=== PATIENT | male | born 2000 | race Caucasian/White ===

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

== ENCOUNTER → 2022-06-25 09:55 | Outpatient (CLI) | payer MEDICAID, SELFPAY ==
--- NOTE | 2022-06-25 | CA_ITS ---
APPROVED REPORT EXAM: Comprehensive 2D, Doppler, and color-flow Echocardiogram Creel Selector: Kizzy Asencio RT(R) Ht: 6 ft 1 in Wt: 160lbs BSA: 1.96 BP: 140/90 mmHg Indications: bradycardia, HTN, family history of HD. 2D Dimensions LVOT 1.88 cm (M/F) 1.5-2.5 LA Volume 35.10 mL LA Volume Index 18.00 mL/m2 (M/F) 16-34 M-Mode Dimensions RVDd 2.15 cm (0.9-2.6) LA Diam 2.68 cm (1.9-4.0) LVDd 4.68 cm (3.5-5.7) Ao Diam 2.65 cm (2.0-3.7) LVDs 3.49 cm (3.5-5.7) IVSd 0.76 cm (0.6-1.1) PWd 0.76 cm (0.6-1.1) EF (Teich) 50.10% FS 25.40% EDV (Teich) 101.30 mL ESV (Teich) 50.50 mL LV Diastology E Decel Time 173.00 (160-240 msec) E/A Ratio 2.0 MED E' 15.40 (< 7 cm/sec) E'/MED E' Ratio 5.80 (>14) LAT E' 18.50 (<10 cm/sec) E/LAT E' Ratio 4.83 (>14) Mitral Valve MV E Max Emmanuel. 89.00 (40-130 cm/s) MV A Velocity 44.00 (40-130 cm/s) E/A Ratio 2.03 MV Decel. Time 173.00 (160-240 ms) MV PHT 51.00 ms Tricuspid Valve TR P. Velocity 251.00 cm/s RAP Estimate 10.00 mmHg RVSP 35.20 mmHg Left Ventricle Left atrium is normal size, left ventricle is normal size, there is no concentric left ventricular hypertrophy, estimated ejection fraction is 55% with no regional wall motion abnormality. Right Ventricle Right atrium and right ventricle are normal size and contractility. Aortic Valve Aortic valve is grossly normal there is no aortic stenosis aortic insufficiency. Mitral Valve Mitral valve grossly normal, there is trace mitral regurgitation. Tricuspid Valve Tricuspid valve grossly normal, there is no significant tricuspid regurgitation noted. Pulmonic Valve Pulmonic valve is poorly visualized. Great Vessels Aortic root is normal size. Inferior vena cava normal size with normal inspiratory collapse. Pericardium No significant pericardial effusion noted. Conclusion 1. Normal left ventricular size preserved left ventricular systolic function, estimated ejection fraction 55% with no regional wall motion abnormality, diastolic parameters are within normal range. 2. Trace mitral regurgitation. 3. No significant pericardial effusion noted. 4. Inferior vena cava normal size with normal spectral collapse. Electronically signed by : Jose Alcantara MD 06/25/2022 15:35:46
--- NOTE | 2022-06-25 10:29 | ECG_ITS ---
APPROVED REPORT Exam: Resting ECG HR:55 bpm ECG Measurements Heart Rate 55 AXES OK 145 P 44 QRSd 92 QRS 79 QT 390 T 35 QTc 380 Conclusion SINUS BRADYCARDIA WITH SINUS ARRHYTHMIA ST ELEVATION, c/w EARLY REPOLARIZATION [ST ELEVATION WITH NORMALLY INFLECTED T-WAVE] BORDERLINE ECG UNCONFIRMED REPORT Electronically signed by : Jean Jackman MD 06/27/2022 08:07:32
== END ==
PROVIDERS: PCP Internal Medicine Adolescent Medicine; Visit Provider Nurse Practitioner Family
DX: R00.1 Bradycardia, unspecified (principal)
CPT/HCPCS: 93005; 93306